=== PATIENT | male | born 2000 | race Caucasian/White ===

== ENCOUNTER 2023-07-30 10:45 | Emergency (ER) | payer OTHER, SELFPAY ==
[2023-07-30] VITALS (21 sets, daily range): BP systolic 107–130; BP diastolic 52–79; PULSE 75–115; RESP 13–20; TEMP 37.2; O2SAT 97–100
[2023-07-30 11:09] LABS: Basophils Percent Auto 0.3 % (0.2-1.2); Eosinophils Percent Auto 0.3 % (0-4.4); Hematocrit 39.7 % (42.0-52.0); Hemoglobin 13.2 g/dL (14.0-18.0); Immature Granulocyte Absolute 0.03 K/mm3 (0.00-0.031); Immature Granulocyte Percent A 0.3 % (0-0.5); Lymphocytes Absolute Auto 0.68 K/mm3 (0.9-3.2); Lymphocytes Percent Auto 6.8 % (18.3-44.2); Mean Corpuscular HGB Conc 33.2 g/dl (32-36); Mean Corpuscular Hemoglobin 28.7 pg (26-34); Mean Corpuscular Volume 86.3 fl (80-100); Mean Platelet Volume 10.1 fl (7.4-10.4); Monocytes Absolute Auto 0.5 K/mm3 (0.1-0.6); Monocytes Percent Auto 5.3 % (2.6-8.5); Neutrophils Absolute Auto 8.8 K/mm3 (1.3-6.7); Platelet Count Result 206 k/mm3 (150-375); Red Cell Distribution Width 13.2 % (11.5-14.5); White Blood Count 10.1 K/mm3 (4.5-10.0)
[2023-07-30 11:12] LABS: Appearance Urine Clear (Clear); Bilirubin Urine Negative (Negative); Blood Urine Negative (Negative); Color Urine Yellow (Yellow); Glucose Urine UA Negative (Negative); Ketones Urine Negative (Negative); Leukocyte Esterase Ur Negative LEU/UL (Negative); Nitrate Urine Negative (Negative); Protein Urine Negative (Negative); Specific Grav Ur 1.011 (1.001-1.035); pH Urine 8.5 (5.0-9.0)
[2023-07-30 11:19] LABS: Add Urine Microscopic? NO
[2023-07-30 11:21] LABS: Alanine Aminotransferase 17 U/L (6-50); Albumin Level 5.1 g/dL (3.5-5.1); Alkaline Phosphatase 107 U/L (38-126); Anion Gap 9 mmol/L (8-16); Aspartate Amino Transferase 22 U/L (17-59); Bilirubin,Total 1.6 mg/dL (0.2-1.3); Blood Urea Nitrogen 13 mg/dL (9-20); Calcium 9.7 mg/dL (8.4-10.2); Carbon Dioxide 31 mmol/L (22-30); Chloride 100 mmol/L (98-107); Estimated CRCL calculation 103 ml/min; Estimated Glomerular Filt Rate > 60; Glucose 97 mg/dL (65-110); Sodium 140 mmol/L (137-145)
--- NOTE | 2023-07-30 11:53 | ED.GENADULT ---
HPI - General Adult General Chief complaint: Urogenital-Male Stated complaint: Right Flank Pain Time Seen by Provider: 07/30/23 11:18 History of Present Illness HPI narrative: 22-year-old male presented ED for evaluation of left flank pain. 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 Patient was post follow-up this coming January with urology but states he does not have a urologist anymore. Patient reports left flank pain but denies any pain with urination. Related Data Allergies Allergy/AdvReac Type Severity Reaction Status Date / Time No Known Allergies Allergy Verified 07/30/23 11:06 Review of Systems Review of Systems: All systems reviewed & are unremarkable except as noted in HPI and below Exam Narrative: APPEARANCE: Well appearing, no pain, no distress, well-nourished. HEAD: normocephalic, atraumatic. EYES: PERRLA/EOMI, conjunctivae clear. NOSE: Normal no drainage NECK: Supple. No adenopathy, no masses. RESPIRATORY: Airway patent, respirations nonlabored. Clear to auscultation bilaterally, no rales, rhonchi, wheezing. CARDIOVASCULAR: Regular rate and rhythm without murmurs rubs or gallops. ABDOMINAL: Soft, nontender, nondistended, normal bowel sounds MUSCULOSKELETAL: Moves all extremities. Strength/ROM intact, No edema, No calf tenderness. NEURO: Alert. Cranial nerves II through XII intact. Grossly intact SKIN: Warm, dry. Normal Color Course Course Emergency Course: 22-year-old male presented the ED for evaluation of left flank pain. Patient had no hematuria on his UA. Patient was afebrile but does have a minor leukocytosis of 10.1 and a stable hemoglobin. Normal kidney function. Patient's bladder scan was negative. Patient was encouraged of close follow-up with his primary care physician. Vital Signs Vital signs: Vital Signs Temperature 98.9 F 07/30/23 10:47 Pulse Rate 115 H 07/30/23 10:47 Respiratory Rate 20 07/30/23 10:47 Blood Pressure 130/79 07/30/23 10:47 Pulse Oximetry 98 07/30/23 10:47 Oxygen Delivery Room Air 07/30/23 10:47 Temperature 98.9 F 07/30/23 10:47 Pulse Rate 90 07/30/23 13:46 Respiratory Rate 18 07/30/23 13:46 Blood Pressure 109/57 L 07/30/23 13:45 Pulse Oximetry 98 07/30/23 13:31 Oxygen Delivery Room Air 07/30/23 10:47 Medical Decision Making Differential Diagnosis Differential Diagnosis: UTI, urinary retention, acute kidney injury Vital Signs Vital Signs: Vital Signs Temperature 98.9 F 07/30/23 10:47 Pulse Rate 115 H 07/30/23 10:47 Respiratory Rate 20 07/30/23 10:47 Blood Pressure 130/79 07/30/23 10:47 Pulse Oximetry 98 07/30/23 10:47 Oxygen Delivery Room Air 07/30/23 10:47 Temperature 98.9 F 07/30/23 10:47 Pulse Rate 90 07/30/23 13:46 Respiratory Rate 18 07/30/23 13:46 Blood Pressure 109/57 L 07/30/23 13:45 Pulse Oximetry 98 07/30/23 13:31 Oxygen Delivery Room Air 07/30/23 10:47 Lab Data Lab results reviewed: Yes I reviewed the patient's lab results. 07/30/23 11:01 07/30/23 11:01 Labs: Lab Results 07/30/23 07/30/23 Range/Units 10:56 11:01 WBC 10.1 H (4.5-10.0) K/mm3 RBC 4.60 (4.6-6.20) M/mm3 Hgb 13.2 L (14.0-18.0) g/dL Hct 39.7 L (42.0-52.0) % MCV 86.3 (80-100) fl MCH 28.7 (26-34) pg MCHC 33.2 (32-36) g/dl RDW 13.2 (11.5-14.5) % Plt Count 206 (150-375) k/mm3 MPV 10.1 (7.4-10.4) fl Immature Gran % (Auto) 0.3 (0-0.5) % Neut % (Auto) 87.0 H (45.5-73.1) % Lymph % (Auto) 6.8 L (18.3-44.2) % Emmet % (Auto) 5.3 (2.6-8.5) % Eos % (Auto) 0.3 (0-4.4) % Baso % (Auto) 0.3 (0.2-1.2) % Lymph # (Auto) 0.68 L (0.9-3.2) K/mm3 Emmet # (Auto) 0.5 (0.1-0.6) K/mm3 Eos # (Auto) 0.0 (0-0.3) K/mm3 Baso # (Auto) 0.0 (0.0-0.1) K/mm3 Abs Immat Gran (auto) 0.03 (0.00-0.031) K/mm3 Absolute Neuts (auto) 8.8 H (1.3-6.7) K/mm3 Absolute
[2023-07-30] MEDS: ACETAMINOPHEN 500 MG TABLET 1000 MG PO (12:18)
[2023-07-30] MEDS: SODIUM CHLORIDE 0.9% IV 1,000 ML 999 ML IV CONT (12:18)
== END 2023-07-30 14:03 | disposition home or self-care (01) ==
PROVIDERS: Emergency Provider Emergency Medicine; PCP Family Medicine
DX: M54.9 Dorsalgia, unspecified (principal); N32.89 Other specified disorders of bladder
CPT/HCPCS: 36415; 80053; 81003; 85025; 96360; 99283; A9270; J7030

== ENCOUNTER 2023-08-10 12:10 | Emergency (ER) | payer OTHER, SELFPAY ==
--- NOTE | ~2023-08-10 | CT_ITS ---
EXAMINATION: CT abdomen pelvis wo con DATE: 08/10/2023 13:04 INDICATION: Flank pain, right back pain TECHNIQUE: Computed tomography (CT) of the abdomen and pelvis was performed without intravenous contr ast. Automated exposure control and iterative reconstruction technique were employed. Exam dose: 214 .22 mGy-cm total exam DLP. COMPARISON: None. FINDINGS: The lung bases are clear. Normal heart size. No pericardial or pleural effusion. The liver, gallbladder, bile ducts, pancreas, pancreatic duct and spleen appear normal. Normal morphology of the adrenal glands. No renal mass lesion or urinary tract calculus or hydroureteronephrosis. Normal caliber of the abdominal aorta. No intraperitoneal or retroperitoneal or pelvic mass lesion or adenopathy or ascites. The urinary bladder, prostate gland and seminal vesicles are unremarkable. The appendix is not clearly delineated but no inflammatory changes noted in the right lower quadrant or elsewhere. No bowel obstruction or intraperitoneal free air. 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 No suspicious osteolyti c or osteoblastic lesions. IMPRESSION: No significant abnormality of the abdomen or pelvis Transitional lumbosacral vertebra Reviewed, dictated and finalized at [facility]. Reviewed, dictated and finalized at [facility].
--- NOTE | 2023-08-10 12:47 | ED.BACK ---
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 He states symptoms have been present for the last couple of weeks, initially was just experiencing back pain. He was seen here in the emergency department and did not have any dysuria at that time. He had a negative workup and was discharged with outpatient follow-up. He states he has not followed up with his primary care doctor or urologist since his recent visit. He notes that he recently began having burning and pain with urination in addition to the lower back pain. He denies any fever chills. No issues initiating or maintaining urinary stream. No incontinence. He notes some increase in abdominal pain occasionally with eating. Pain is located in bilateral flank and intermittently radiates anteriorly. No hematuria. No diarrhea. Would like to be tested for STDs. Related Data Allergies Allergy/AdvReac Type Severity Reaction Status Date / Time No Known Allergies Allergy Verified 08/10/23 12:15 Review of Systems Review of Systems: All systems reviewed & are unremarkable except as noted in HPI and below Exam Narrative: GENERAL: Well-appearing, well-nourished, and in no acute distress. HEAD: Normocephalic, atraumatic. EYES: PERRLA and EOMI. ENT: Nares clear. Mucous membranes moist. NECK: Supple. CHEST: Clear to auscultation. No respiratory distress. HEART: Regular rate and rhythm. Normal peripheral pulses. ABDOMEN: Soft, nontender, nondistended. Bilateral mild CVA tenderness. EXTREMITIES: Normal range of motion. No edema. No midline back pain. SKIN: Warm, dry, no rash. NEURO: No focal deficits. Alert and oriented x3. PSYCH: Normal mood and affect. Course Course Emergency Course: Chart review performed. Patient here with back pain, reportedly pain with urination. ED note on 07/30/23 reviewed. He was seen here for flank pain. During that visit WBC 10.1, normal renal function, UA negative. Was discharged with PCP follow up. Patient seen evaluated, nontoxic appearing. Bilateral CVA tenderness and dysuria. Will evaluate for possible STI, UTI, nephrolithiasis. Patient has a ride home. Will give IV pain medication and antiemetics. IV fluids initiated. Last p.o. intake was around 12PM. Lab work reviewed, no leukocytosis, WBC 10.1 on 07/30/23, improved today to 8.2. UA shows 3+ leukocyte esterases, >100 WBC, no bacteria, no RBC. CT shows no stones or hydronephrosis. Trichomonas negative. Awaiting GC/Chlamydia. Patient positive for gonorrhea. Will treat patient for UTI and gonorrhea. He has been given Rocephin and doxycycline here in the emergency department and will be discharged on Keflex and doxycycline. All partners should be tested and treated. His current partner at bedside plans to be tested and treated for STIs as well. The results of pertinent diagnostic studies and exam findings were discussed. The patient?s provisional diagnosis and plan of care were discussed with the patient and present family. The patient and/or present family expressed understanding of the diagnosis and plan. The nurse was instructed to provide written instructions and appropriate follow-up information. The patient understands their need and responsibility to obtain additional follow-up as instructed. The risks of medications administered and prescribed were discussed with the patient and family present. Vital Signs Vital signs: Vital Signs Pulse Rate 84 08/10/23 17:38 Respiratory Rate 16 08/10/23 17:38 Blood Pressure 128/86 08/10/23 17:38 Pulse Oximetry 99 08/10/23 17:38 Pulse Rate 84 08/10/23 17:38 Respiratory Rate 16 08/10/23 17:38 Blood Pressure 128/86 08/10/23 17:38 Pulse
[2023-08-10 13:23] LABS: Basophils Absolute Auto 0.1 K/mm3 (0.0-0.1); Basophils Percent Auto 0.7 % (0.2-1.2); Eosinophils Absolute Auto 0.2 K/mm3 (0-0.3); Eosinophils Percent Auto 2.6 % (0-4.4); Hematocrit 38.4 % (42.0-52.0); Hemoglobin 12.2 g/dL (14.0-18.0); Immature Granulocyte Absolute 0.05 K/mm3 (0.00-0.031); Immature Granulocyte Percent A 0.6 % (0-0.5); Lymphocytes Absolute Auto 1.84 K/mm3 (0.9-3.2); Lymphocytes Percent Auto 22.4 % (18.3-44.2); Mean Corpuscular HGB Conc 31.8 g/dl (32-36); Mean Corpuscular Hemoglobin 27.9 pg (26-34); Mean Corpuscular Volume 87.7 fl (80-100); Mean Platelet Volume 9.3 fl (7.4-10.4); Monocytes Absolute Auto 0.5 K/mm3 (0.1-0.6); Monocytes Percent Auto 6.5 % (2.6-8.5); Neutrophils Absolute Auto 5.5 K/mm3 (1.3-6.7); Neutrophils Percent Auto 67.2 % (45.5-73.1); Platelet Count Result 286 k/mm3 (150-375); Red Blood Count 4.38 M/mm3 (4.6-6.20); Red Cell Distribution Width 13.2 % (11.5-14.5); White Blood Count 8.2 K/mm3 (4.5-10.0)
[2023-08-10] MEDS: SODIUM CHLORIDE 0.9% IV 1,000 ML 999 ML IV CONT (13:26)
[2023-08-10] MEDS: ONDANSETRON INJ 4 MG/2 ML VIAL IV PUSH (13:27)
[2023-08-10] MEDS: MORPHINE SULFATE (*CRX) 4 MG/ML INJ IV PUSH (13:27)
[2023-08-10 13:28] LABS: Appearance Urine Cloudy (Clear); Bacteria Urine None Seen /hpf; Bilirubin Urine Negative (Negative); Color Urine Yellow (Yellow); Glucose Urine UA Negative (Negative); Ketones Urine Negative (Negative); Leukocyte Esterase Ur 3+ LEU/UL (Negative); Nitrate Urine Negative (Negative); Non Pathogenic Casts 0-2; Protein Urine Negative (Negative); RBC Urine 0-2 /hpf (0-2); Specific Grav Ur 1.025 (1.001-1.035); Squamous Epithelial Cell Urine None seen /hpf (Few); Urobilinogen Urine 0.2 mg/dL (<2.0); WBC Urine >100 /hpf; pH Urine 5.5 (5.0-9.0)
[2023-08-10 13:30] LABS: Add Urine Microscopic? YES
[2023-08-10 13:33] LABS: Alanine Aminotransferase 17 U/L (6-50); Albumin Level 4.4 g/dL (3.5-5.1); Alkaline Phosphatase 85 U/L (38-126); Anion Gap 9 mmol/L (8-16); Aspartate Amino Transferase 21 U/L (17-59); Bilirubin,Total 0.7 mg/dL (0.2-1.3); Blood Urea Nitrogen 13 mg/dL (9-20); Calcium 9.2 mg/dL (8.4-10.2); Carbon Dioxide 27 mmol/L (22-30); Chloride 104 mmol/L (98-107); Estimated CRCL calculation 117 ml/min; Estimated Glomerular Filt Rate > 60; Glucose 92 mg/dL (65-110); Lipase 80 U/L (23-300); Potassium 3.9 mmol/L (3.4-5.0); Sodium 140 mmol/L (137-145)
[2023-08-10 15:08] LABS: Trichomonas Vag PCR NOT DETECTED (NOT DETECTE)
[2023-08-10 15:34] LABS: Chlamydia trachomatis NOT DETECTED (NOT DETECTE); Neisseria gonorrhoeae PCR DETECTED (NOT DETECTE)
[2023-08-10] MEDS: LIDOCAINE HCL 1% LOCAL INJ 10 ML VIAL (17:08)
[2023-08-10] MEDS: cefTRIAXone 1 GM VIAL 0.5 GM IM (17:08)
[2023-08-10] MEDS: DOXYCYCLINE HYCLATE 100 MG TABLET PO (17:09)
[2023-08-10 17:38] VITALS: BP 128/86; PULSE 84; RESP 16; O2SAT 99
== END 2023-08-10 17:39 | disposition home or self-care (01) ==
PROVIDERS: Emergency Provider Student in an Organized Health Care Education/Training Program; PCP Family Medicine
DX: N39.0 Urinary tract infection, site not specified (principal); A54.00 Gonococcal infection of lower genitourinary tract, unspecified; M54.50 Low back pain, unspecified; Q76.49 Other congenital malformations of spine, not associated with scoliosis
CPT/HCPCS: 36415; 74176; 80053; 81001; 83690; 85025; 87086; 87491; 87591; 87661; 96361; 96372; 96374; 96375; 99284; A9270; J0696; J2270; J2405; J7030

== ENCOUNTER 2023-09-04 02:47 | Emergency (ER) | payer OTHER, SELFPAY ==
[2023-09-04 02:58] VITALS: BP 123/86; PULSE 73; RESP 14; TEMP 36.2; O2SAT 100
--- NOTE | 2023-09-04 03:54 | ED.GENADULT ---
HPI - General Adult General Chief complaint: Back Pain/Injury Stated complaint: low back pain Time Seen by Provider: 09/04/23 03:25 Source: patient Mode of arrival: ambulatory Limitations: no limitations History of Present Illness HPI narrative: 23-year-old male presenting to emergency department for complaints of concerns for UTI. Patient was seen here recently for similar symptoms and was diagnosed with gonorrhea and UTI. He was treated for gonorrhea here but never was able to get his prescriptions for the UTI. The symptoms have continued and include dysuria, frequency, some low back pain. He previously had a bladder tumor that was removed. No hematuria. All other symptoms and complaints are negative as per ROS. Related Data Allergies Allergy/AdvReac Type Severity Reaction Status Date / Time No Known Allergies Allergy Verified 08/10/23 12:15 Review of Systems Review of Systems: All systems reviewed & are unremarkable except as noted in HPI and below Exam Narrative: Constitutional: Generally well appearing, no acute distress Head: Atraumatic, no deformities. Eyes: Pupils equal, round, and reactive to light. Neck: Supple, no tracheal deviation, no JVD. ENMT: Mucous membranes moist Cardiovascular: S1, S2 auscultated. No murmurs, rubs, or gallops. No S3/S4. Normal Distal pulses. No peripheral edema. Respiratory: Lung sounds equal. No wheezes, rales, or rhonchi. Gastrointestinal: Abdomen was soft and non-tender. Non-distended. No rebound or guarding. Genitourinary: Deferred Musculoskeletal: Normal muscle tone and bulk. No obvious deformities or tenderness over extremities. Skin: No rashes. Neurological: Strength 5/5 in extremities. Cranial nerves I-XII grossly intact. Distal sensation intact. Mental Status: Awake, alert and oriented x3. Follows commands Course Vital Signs Vital signs: Vital Signs Temperature 36.2 C L 09/04/23 02:58 Pulse Rate 73 09/04/23 02:58 Respiratory Rate 14 09/04/23 02:58 Blood Pressure 123/86 09/04/23 02:58 Pulse Oximetry 100 09/04/23 02:58 Oxygen Delivery Room Air 09/04/23 02:58 Temperature 36.2 C L 09/04/23 02:58 Pulse Rate 73 09/04/23 02:58 Respiratory Rate 14 09/04/23 02:58 Blood Pressure 123/86 09/04/23 02:58 Pulse Oximetry 100 09/04/23 02:58 Oxygen Delivery Room Air 09/04/23 02:58 Medical Decision Making MDM Narrative Medical decision making narrative: 23-year-old well-appearing male presenting for concerns for UTI. Previous history of bladder tumor removal. Was treated for gonorrhea recently and was given prescription for antibiotics for UTI but was never able to get them. Symptoms are continued. On exam he is well-appearing. Abdomen is benign. Will obtain urinalysis. Differential including UTI , unlikely STD given he was recently treated for it. Urinalysis reviewed and interpreted showing ketones but no obvious infection. Given he was supposed to be treated for infection recently and is still symptomatic, will initiate treatment and Given new prescription for doxycycline and Keflex. Patient is agreeable . Pt feeling improved and would like to go home at this point. Return precautions were given to the patient include any new or worsening symptoms or development of and not limited to any chest pain, shortness of breath, lightheadedness, abdominal pain, fevers, chills. Patient understands and agrees. They are to follow-up with her PCP. All questions were answered. Vital Signs Vital Signs: Vital Signs Temperature 36.2 C L 09/04/23 02:58 Pulse Rate 73 09/04/23 02:58 Respiratory Rate 14 09/04/23 02:58 Blood Pressure 123/86 09/04/23 02:58 Pulse Oximetry 100 09/04/23 02:58 Oxygen Delivery Room Air 09/04/23 02:58 Temperature 36.2 C L 09/04/23 02:58 Pulse Rate 73 09/04/23 02:58 Respiratory Rate 14 09/04/23 02:58 Blood Pressure 123/86 09/04/23 02:58 Pulse Oximetry 100 09/04/23 02:58
[2023-09-04 04:12] LABS: Appearance Urine Cloudy (Clear); Bacteria Urine None Seen /hpf; Bilirubin Urine Negative (Negative); Blood Urine Negative (Negative); Color Urine Dark Yellow (Yellow); Glucose Urine UA Negative (Negative); Ketones Urine Trace mg/dL (Negative); Leukocyte Esterase Ur Negative LEU/UL (Negative); Nitrate Urine Negative (Negative); Non Pathogenic Casts 0-2; Protein Urine Negative (Negative); RBC Urine 0-2 /hpf (0-2); Squamous Epithelial Cell Urine None seen /hpf (Few); WBC Urine 0-5 /hpf
[2023-09-04 04:58] LABS: Add Urine Microscopic? YES; Specific Grav Ur 1.036 (1.001-1.035)
[2023-09-04 05:22] VITALS: BP 122/86; PULSE 74; RESP 15; O2SAT 100
== END 2023-09-04 05:23 | disposition home or self-care (01) ==
PROVIDERS: Emergency Provider Emergency Medicine; PCP Family Medicine
DX: N39.0 Urinary tract infection, site not specified (principal)
CPT/HCPCS: 81001; 99283

== ENCOUNTER 2023-09-10 14:05 | Emergency (ER) | payer OTHER, SELFPAY ==
[2023-09-10 14:16] VITALS: BP 113/73; PULSE 83; RESP 16; TEMP 36.8; O2SAT 100
--- NOTE | 2023-09-10 14:43 | ED.BACK ---
HPI - Back Pain/Injury General Chief Complaint: Back Pain/Injury Stated Complaint: back pain,was seen @ [facility] x2 Time Seen by Provider: 09/10/23 14:20 Source: patient Mode of arrival: ambulatory Limitations: no limitations History of Present Illness HPI Narrative: Juan Pablo is a 17-year-old male patient presenting to the clinic today with complaints of left-sided back pain and left testicle pain. He reports that he has had left-sided back pain for the last month. Was recently treated for UTI and states he is still having pain. Currently taking doxycycline and Keflex for the UTI. Pain is worse with movement. No known injury. Was treated for STI/UTI in the ER on September 04. States testicle pain started over the last few days. History of a benign tumor in the bladder. Related Data Home Medications Medication Instructions Recorded Confirmed cephalexin 500 mg capsule mg 09/10/23 doxycycline hyclate 100 mg tablet mg 09/10/23 Allergies Allergy/AdvReac Type Severity Reaction Status Date / Time No Known Allergies Allergy Verified 09/10/23 14:14 Review of Systems Review of Systems: Pertinent positives per HPI. Patient denies any fever, chills, rash, headache, visual changes, dizziness, cough, runny nose, sore throat, shortness of breath, chest pain, palpitations, nausea, vomiting, diarrhea, constipation, abdominal pain PMFSH Comments At the time of my signature, I reviewed and agree with the nursing past medical, surgical, social, and family history. There is no relevant family history pertinent to the patient complaint. Exam Narrative: General: Well-developed, well nourished, in no apparent distress Head: Normocephalic, atraumatic. Cardio: Regular rate and rhythm, s1 and s2 normal, no murmur appreciated. Resp: Clear to auscultation bilaterally, no rhonchi, rales, wheezing or rubs. Musculoskeletal: No deformity, tender to palpation over the left low back musculature, negative straight leg test bilaterally, patellar reflexes 2+ bilaterally, grossly normal range of motion, muscle strength strong and equal, peripheral pulse strong, no edema, no cyanosis, normal gait and station Abdomen: Soft, pliable, bowel sounds present in all quadrants, non-tender to palpation, no organomegly, no CVAT tenderness. : Circumcised male without corneal adhesions, no mass or lesions noted to the vas deferens, penile shaft, or scrotum, no penile discharge, tenderness to palpation over the top of the left testicle, decreased cremasteric reflex Course Course Emergency Course: Portions of this record may have been created with voice recognition software. Level of Care: Express Care Visit Vital Signs Vital signs: Vital Signs Temperature 36.8 C 09/10/23 14:16 Pulse Rate 83 09/10/23 14:16 Respiratory Rate 16 09/10/23 14:16 Blood Pressure 113/73 09/10/23 14:16 Pulse Oximetry 100 09/10/23 14:16 Oxygen Delivery Room Air 09/10/23 14:16 Temperature 36.8 C 09/10/23 14:16 Pulse Rate 83 09/10/23 14:16 Respiratory Rate 16 09/10/23 14:16 Blood Pressure 113/73 09/10/23 14:16 Pulse Oximetry 100 09/10/23 14:16 Oxygen Delivery Room Air 09/10/23 14:16 Vital signs reviewed MDM - Back Pain/Injury MDM Narrative Medical decision making narrative: At the time of visit patient is resting comfortably on the exam table. Patient reports left testicle pain and left sided back pain. Recommend transfer the to the ER for further evaluation. Contacted Dr. Savage at [facility] and report was given for continuity of care and she accepts patient for transfer. Patient to be transferred via private car. Differential Diagnosis Differential diagnosis: Likely lumbar radiculopathy, sciatica, strain of lumbar region, renal colic, pyelonephritis, thoracic back pain, discitis and other (STI, UTI) Lab Data Labs: Urine Glucose Negative *
== END 2023-09-10 14:58 | disposition short-term general hospital (02) ==
LOC: EXPCOLL 14:09
PROVIDERS: Emergency Provider Nurse Practitioner Family; PCP Family Medicine
DX: M54.9 Dorsalgia, unspecified (principal); Z79.899 Other long term (current) drug therapy
CPT/HCPCS: 81003; 99212; G0463

== ENCOUNTER 2023-09-10 15:14 | Emergency (ER) | payer OTHER, SELFPAY ==
[2023-09-10 15:17] VITALS: BP 131/77; PULSE 69; RESP 16; TEMP 36.6; O2SAT 100
[2023-09-10 15:33] LABS: Basophils Percent Auto 0.6 % (0.2-1.2); Eosinophils Absolute Auto 0.1 K/mm3 (0-0.3); Eosinophils Percent Auto 2.1 % (0-4.4); Hematocrit 41.2 % (42.0-52.0); Hemoglobin 13.4 g/dL (14.0-18.0); Immature Granulocyte Absolute 0.02 K/mm3 (0.00-0.031); Immature Granulocyte Percent A 0.3 % (0-0.5); Lymphocytes Absolute Auto 1.83 K/mm3 (0.9-3.2); Lymphocytes Percent Auto 27.4 % (18.3-44.2); Mean Corpuscular HGB Conc 32.5 g/dl (32-36); Mean Corpuscular Volume 86.2 fl (80-100); Mean Platelet Volume 9.8 fl (7.4-10.4); Monocytes Absolute Auto 0.3 K/mm3 (0.1-0.6); Monocytes Percent Auto 5.1 % (2.6-8.5); Neutrophils Absolute Auto 4.3 K/mm3 (1.3-6.7); Neutrophils Percent Auto 64.5 % (45.5-73.1); Platelet Count Result 237 k/mm3 (150-375); Red Blood Count 4.78 M/mm3 (4.6-6.20); Red Cell Distribution Width 13.2 % (11.5-14.5); White Blood Count 6.7 K/mm3 (4.5-10.0)
[2023-09-10 15:34] LABS: Appearance Urine Clear (Clear); Bilirubin Urine Negative (Negative); Blood Urine Negative (Negative); Color Urine Yellow (Yellow); Glucose Urine UA Negative (Negative); Ketones Urine Negative (Negative); Leukocyte Esterase Ur Negative LEU/UL (Negative); Nitrate Urine Negative (Negative); Protein Urine Negative (Negative); Specific Grav Ur 1.023 (1.001-1.035); Urobilinogen Urine 0.2 mg/dL (<2.0)
[2023-09-10 15:40] LABS: Add Urine Microscopic? NO
[2023-09-10 15:45] LABS: Alanine Aminotransferase 18 U/L (6-50); Albumin Level 5.2 g/dL (3.5-5.1); Alkaline Phosphatase 91 U/L (38-126); Anion Gap 8 mmol/L (8-16); Aspartate Amino Transferase 21 U/L (17-59); Bilirubin,Total 1.4 mg/dL (0.2-1.3); Blood Urea Nitrogen 15 mg/dL (9-20); Calcium 9.9 mg/dL (8.4-10.2); Carbon Dioxide 30 mmol/L (22-30); Chloride 101 mmol/L (98-107); Estimated CRCL calculation 109 ml/min; Estimated Glomerular Filt Rate > 60; Glucose 100 mg/dL (65-110); Sodium 139 mmol/L (137-145)
--- NOTE | 2023-09-10 16:04 | ED.GENADULT ---
HPI - General Adult General Chief complaint: Back Pain/Injury Stated complaint: back pain Time Seen by Provider: 09/10/23 15:41 History of Present Illness HPI narrative: Patient is a 23-year-old male who presents to the emergency department this afternoon complaining of left lower back pain. Patient admits that he was recently treated for a UTI/STD and admits that he has been taking his antibiotic and is currently still on it. He denies any additional urinary symptoms including dysuria, hematuria and is currently denying any penile discharge or genital lesions. Patient states that he has been having this chronic back pain for a while. He denies any recent injury or any back injury in the past. Patient denies any history of IV drug use. Patient denies any chest pain, shortness of breath, nausea, vomiting, abdominal pain, constipation, diarrhea, melena, hematochezia, fevers or chills. He also denies any headaches, dizziness, lightheadedness, blurry visions, focal weakness, numbness and or tingling. There are no other modifying, alleviating, or precipitating factors at this time. Related Data Home Medications Medication Instructions Recorded Confirmed cephalexin 500 mg capsule mg 09/10/23 doxycycline hyclate 100 mg tablet mg 09/10/23 Allergies Allergy/AdvReac Type Severity Reaction Status Date / Time No Known Allergies Allergy Verified 09/10/23 14:14 Review of Systems Review of Systems: All systems are reviewed and are negative unless stated otherwise in the HPI. Exam Narrative: General: Alert, awake, afebrile, in no acute distress, nontoxic-appearing. HEENT: PERRL, no rhinorrhea, no post nasal drip, oropharynx clear. Neck: Trachea midline, no JVD, no lymphadenopathy. Cardiovascular: Regular rate and rhythm, no murmurs, rubs or gallops, no peripheral edema. Respiratory: Clear to auscultation bilaterally, no tachypnea, no wheezing, no rhonchi, no rubs, no respiratory distress. Abdomen: Soft, nontender, nondistended, no rebound, no guarding, no peritoneal signs. Musculoskeletal: No joint swelling or deformity, normal muscle tone. Back: No midline tenderness to palpation over the cervical, thoracic, and lumbar spine, localized tenderness over the left SI joint. Skin: No rashes or petechia, no signs of infection. Psychiatric: Alert and oriented, normal behavior and judgment for situation. Neurological: Alert and oriented to person, place, and time. Follows all commands. No focal deficits, speech is clear and fluent. Course Vital Signs Vital signs: Vital Signs Temperature 97.9 F 09/10/23 15:17 Pulse Rate 69 09/10/23 15:17 Respiratory Rate 16 09/10/23 15:17 Blood Pressure 131/77 09/10/23 15:17 Pulse Oximetry 100 09/10/23 15:17 Oxygen Delivery Room Air 09/10/23 15:17 Temperature 97.9 F 09/10/23 15:17 Pulse Rate 69 09/10/23 15:17 Respiratory Rate 16 09/10/23 15:17 Blood Pressure 131/77 09/10/23 15:17 Pulse Oximetry 100 09/10/23 15:17 Oxygen Delivery Room Air 09/10/23 15:17 Medical Decision Making MDM Narrative Medical decision making narrative: The patient was evaluated by myself in the emergency department. History is obtained from patient who is an independent historian and physical exam was performed. External medical records were reviewed at this time. IV was established and pertinent tests were ordered. Laboratory results obtained revealing no acute process. Patient was recently treated for UTI and is currently still taking his antibiotic. Urinalysis obtained today reveals no evidence of urinary tract infection and patient was informed of this and informed to continue taking his full dose of the antibiotic. Imaging studies obtained on August [address] abdomen and pelvis with IV contrast which revealed some lumbosacral pseudoarthrosis and patient was informed of this and provided with a copy of his CT results. He was informed that this could be the
[2023-09-10] MEDS: LIDOCAINE 5% PATCH 1 PATCH TRANSDERM (16:39)
== END 2023-09-10 16:45 | disposition home or self-care (01) ==
PROVIDERS: Emergency Medicine; Emergency Provider Emergency Medicine; PCP Family Medicine
DX: M54.16 Radiculopathy, lumbar region (principal); S39.012A Strain of muscle, fascia and tendon of lower back, initial encounter; X58.XXXA Exposure to other specified factors, initial encounter
CPT/HCPCS: 36415; 80053; 81003; 85025; 99283; A9270

== ENCOUNTER 2024-03-07 11:55 | Emergency (ER) | payer OTHER, SELFPAY ==
[2024-03-07 12:10] VITALS: BP 117/78; PULSE 81; RESP 17; TEMP 36.8; O2SAT 99
[2024-03-07 12:28] LABS: Appearance Urine Clear (Clear); Bacteria Urine None Seen /hpf; Bilirubin Urine Negative (Negative); Blood Urine Trace (Negative); Color Urine Yellow (Yellow); Glucose Urine UA Negative (Negative); Ketones Urine Negative (Negative); Leukocyte Esterase Ur Negative LEU/UL (Negative); Nitrate Urine Negative (Negative); Non Pathogenic Casts 0-2; Protein Urine Negative (Negative); RBC Urine 0-2 /hpf (0-2); Specific Grav Ur 1.013 (1.001-1.035); Squamous Epithelial Cell Urine None Seen /hpf (Few); Urobilinogen Urine 0.2 mg/dL (<2.0); WBC Urine 0-5 /hpf (0-3)
[2024-03-07 12:32] LABS: Add Urine Microscopic? YES
--- NOTE | 2024-03-07 13:22 | ED.MALEGU ---
HPI - Male Genitourinary General Chief complaint: Urogenital-Male Stated complaint: urinary problems Time Seen by Provider: 03/07/24 12:07 Source: patient Mode of arrival: ambulatory Limitations: no limitations History of Present Illness HPI Narrative: 23-year-old status post bladder tumor resection early part of this year here with complaints of having burning sensation and decreased urine flow at times for past few days. Patient has been in the ER for similar problems in the past for UTI. He presently denies having any fever or chills no history of any flank pain or blood in the urine. Denies any penile discharge Related Data Home Medications Medication Instructions Recorded Confirmed cephalexin 500 mg capsule mg 09/10/23 doxycycline hyclate 100 mg tablet mg 09/10/23 Allergies Allergy/AdvReac Type Severity Reaction Status Date / Time No Known Allergies Allergy Verified 09/10/23 14:14 Review of Systems Review of Systems: All systems reviewed & are unremarkable except as noted in HPI and below Constitutional: Constitutional: Reports no additional constitutional complaints Eyes: Eyes: Reports no additional eye complaints ENT: Reports system reviewed and no additional complaints, except as documented Cardiovascular: Cardiovascular: Reports no additional cardiovascular complaints Respiratory: Respiratory: Reports no additional respiratory complaints Gastrointestinal: Gastrointestinal: Reports as per HPI Genitourinary: Genitourinary: Reports as per HPI Musculoskeletal: Musculoskeletal: Reports no additional musculoskeletal complaints Exam Narrative: GENERAL: Well-appearing, well-nourished, and in no acute distress. HEAD: Normocephalic, atraumatic. EYES: PERRLA and EOMI. ENT: Nares clear, no rhinorrhea or epistaxis. Mucous membranes moist. NECK: Supple. CHEST: Clear to auscultation. No respiratory distress. HEART: Regular rate and rhythm. No murmur heard. Normal peripheral pulses. ABDOMEN: Soft, nontender, nondistended, normal active bowel sounds. No CVA tenderness EXTREMITIES: Normal range of motion. No edema. SKIN: Warm, dry, no rash. NEURO: No focal deficits. Alert and oriented x3. PSYCH: Normal mood and affect. Course Course Emergency Course: I did review his chart from the previous visit. He his urine is clear I did inform him about his lab work. Advised him to drink more fluids, I feel has any high fever or having recurrent problem follow-up with his primary doctor. Vital Signs Vital signs: Vital Signs Temperature 36.8 C 03/07/24 12:10 Pulse Rate 81 03/07/24 12:10 Respiratory Rate 17 03/07/24 12:10 Blood Pressure 117/78 03/07/24 12:10 Pulse Oximetry 99 03/07/24 12:10 Oxygen Delivery Room Air 03/07/24 12:10 Temperature 36.8 C 03/07/24 12:10 Pulse Rate 81 03/07/24 12:10 Respiratory Rate 17 03/07/24 12:10 Blood Pressure 117/78 03/07/24 12:10 Pulse Oximetry 99 03/07/24 12:10 Oxygen Delivery Room Air 03/07/24 12:10 MDM - Male Genitourinary Lab Data Labs: Lab Results 03/07/24 Range/Units 12:17 Urine Color Yellow (Yellow) Urine Appearance Clear (Clear) Urine pH 6.0 (5.0-9.0) Ur Specific Barnard 1.013 (1.001-1.035) Urine Protein Negative (Negative) mg/dL Urine Glucose (UA) Negative (Negative) mg/dL Urine Ketones Negative (Negative) mg/dL Ur Blood (Man) Trace (Negative) Urine Nitrate Negative (Negative) Urine Bilirubin Negative (Negative) Urine Urobilinogen 0.2 (<2.0) mg/dL Leukocyte Esterase Rfl Negative (Negative) GRETA/UL Urine RBC 0-2 (0-2) /hpf Urine WBC 0-5 (0-3) /hpf Ur Squamous Epith Cells None seen (Few) /hpf Urine Bacteria None seen /hpf Urine Casts 0-2 Urine Characteristics Clear Discharge Plan Discharge Clinical Impression: Dysuria Patient Disposition: Home, Self-Care Condit
[2024-03-07 13:37] VITALS: BP 118/73; PULSE 72; RESP 17; TEMP 36.7; O2SAT 100
== END 2024-03-07 13:38 | disposition home or self-care (01) ==
PROVIDERS: Emergency Provider Family Medicine; PCP Family Medicine
DX: R30.0 Dysuria (principal)
CPT/HCPCS: 81001; 99283

== ENCOUNTER 2024-07-19 18:34 | Emergency (ER) | payer OTHER, SELFPAY ==
--- NOTE | 2024-07-19 18:36 | ED.SKABFB ---
HPI - Skin/Abscess/Foreign Bdy General Chief complaint: Skin/Abscess/Foreign Body Stated complaint: rash on body Time Seen by Provider: 07/19/24 18:35 Source: patient Mode of arrival: ambulatory Limitations: no limitations History of Present Illness HPI narrative: Juan Pablo is a 23-year-old male patient presenting to the clinic today with complaints of a rash times 2-3 days. He reports rash is itchy and is on his left arm and on the right chest wall. Denies any fever, chills, or body aches. Denies any new environmental exposures. Related Data Home Medications Medication Instructions Recorded Confirmed cephalexin 500 mg capsule mg 09/10/23 doxycycline hyclate 100 mg tablet mg 09/10/23 Allergies Allergy/AdvReac Type Severity Reaction Status Date / Time No Known Allergies Allergy Verified 09/10/23 14:14 Review of Systems Review of Systems: Pertinent positives per HPI. Patient denies any fever, chills, headache, visual changes, dizziness, cough, runny nose, sore throat, shortness of breath, chest pain, palpitations, nausea, vomiting, diarrhea, constipation, abdominal pain, or any urinary issues. PMFSH Comments At the time of my signature, I reviewed and agree with the nursing past medical, surgical, social, and family history. There is no relevant family history pertinent to the patient complaint. Exam Narrative: General: Well-developed, well nourished, in no apparent distress Head: Normocephalic, atraumatic. Cardio: Regular rate and rhythm, s1 and s2 normal, no murmur appreciated. Resp: Clear to auscultation bilaterally, no rhonchi, rales, wheezing or rubs. Integumentary: [place], warm, and dry, intact without lesion, red, raised, scaly, circular rash with central clearing to the left arm x2 and the right chest wall Course Course Emergency Course: Portions of this record may have been created with voice recognition software. Level of Care: Express Care Visit Vital Signs Vital signs: Vital signs reviewed MDM - Skin/Abscess/Foreign Bdy MDM Narrative Medical decision making narrative: At the time of visit patient is resting comfortably on the exam table. Patient appears to be nontoxic. Plan: I suspect patient has tinea corpus. Prescription for clotrimazole cream was sent to the pharmacy. Supportive measures were discussed with the patient and they voiced understanding discharge instructions and agrees to treatment plan. Return precautions reviewed Differential Diagnosis Differential diagnosis: Likely abscess of skin or subcutaneous tissue, viral exanthem, urticaria, herpes zoster, cellulitis, eczema, insect bites, impetigo, contact dermatitis and other (Tinea corpus) Discharge Plan Discharge Clinical Impression: Tinea corporis Patient Disposition: Home, Self-Care Condition: Stable Instructions: Antibiotic Form, Tinea Corporis (ED) Additional Instructions: Apply clotrimazole cream to the area twice daily times 14 days Rash is considered contagious for the 1st 48 hours while doing treatment Keep area covered during this 48 hour. Follow-up with your primary care doctor in 1 week if symptoms persist or sooner if they worsen Prescriptions: New clotrimazole 1 % cream 1 applic topical BID 14 Days Qty: 30 0RF No Action cephalexin 500 mg capsule doxycycline hyclate 100 mg tablet lidocaine [Lidoderm] 5 % adhesive patch,medicated 1 patch topical DAILY Qty: 2 0RF Rx Instructions: leave on most painful area for up to 12 hrs Follow-up/Referrals: Anna,Alexis Malone MD [Primary Care Provider] - Time of Disposition: 19:05 Quality NIHSS Nursing Documentation ED NIHSS nursing documentation: reviewed/agree
[2024-07-19 19:12] VITALS: BP 128/79; PULSE 68; RESP 20; TEMP 36.7; O2SAT 100
== END 2024-07-19 19:22 | disposition home or self-care (01) ==
LOC: EXPCOLL 18:41
PROVIDERS: Emergency Provider Nurse Practitioner Family; PCP Family Medicine
DX: B35.4 Tinea corporis (principal)
CPT/HCPCS: 99213; G0463

== ENCOUNTER 2025-07-27 11:44 | Emergency (ER) | payer OTHER, SELFPAY ==
--- NOTE | ~2025-07-27 | XR_ITS ---
X-rays left wrist Indication: Lifting boxes and felt pop Comparison: None Technique: 4 views left wrist Findings/Impression: 1. No fracture or dislocation left wrist. Reviewed, dictated and finalized at location R.
[2025-07-27 11:57] VITALS: BP 106/64; PULSE 62; RESP 18; TEMP 36.7; O2SAT 100
--- NOTE | 2025-07-27 12:11 | ED.GENADULT ---
HPI - General Adult General Chief complaint: Extremity Injury, Upper Stated complaint: Severe pain in left wrist; thinks it's sprained Time Seen by Provider: 07/27/25 12:11 Source: patient Mode of arrival: ambulatory Limitations: no limitations History of Present Illness HPI narrative: 24-year-old male patient presents to [facility] with complaints of left wrist pain for the past 4 days. Patient states he woke up about 4 days ago with slight hand pain went to work. 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 Patient denies taking anything for pain denies icing it and denies wrapping it for comfort. Denies any numbness or tingling to the fingertips. Related Data Allergies Allergy/AdvReac Type Severity Reaction Status Date / Time No Known Allergies Allergy Verified 07/27/25 11:58 Review of Systems Review of Systems: CONSTITUTIONAL: Denies fever, chills, or sweats. EYES: Denies visual changes, redness, or discharge. ENT: Denies rhinorrhea, congestion, sore throat, or otalgia. CARDIOVASCULAR: Denies chest pain, palpitations, or edema. RESPIRATORY: Denies cough or dyspnea. GASTROINTESTINAL: Denies abdominal pain, nausea, vomiting, or diarrhea. GENITOURINARY: Denies dysuria or hematuria. SKIN: Denies rash or itching. MUSCULOSKELETAL: Denies back pain, joint pain, or myalgia. Positive left wrist pain x4 days NEUROLOGIC: Denies headache, numbness, or weakness. PSYCHIATRIC: Denies anxiety or depression. [facility] Past Medical History Medical History (Updated 07/27/25 @ 12:38 by JULIO Beach) No significant past medical history Comments At the time of my signature I agree with nursing past medical history, surgical, social, and family history. There is no relevant family history pertinent to the presenting complaint. Exam Narrative: GENERAL: Well-appearing, well-nourished, and in no acute distress. HEAD: Normocephalic, atraumatic. EYES: PERRLA and EOMI. ENT: Nares clear, no rhinorrhea or epistaxis. Mucous membranes moist. NECK: Supple. No lymphadenopathy CHEST: Clear to auscultation. No respiratory distress. HEART: Regular rate and rhythm. No murmur heard. Normal peripheral pulses. ABDOMEN: Soft, nontender, nondistended, normal active bowel sounds. EXTREMITIES: The L wrist is without obvious asymmetry or deformity when compared to the R wrist. No surface trauma, open wounds, swelling, or obvious deformity. No overlying erythema or warmth. No bony crepitus or focal area of TTP. No scaphoid fullness or tenderness to direct palpation or axial load. Normal flex/extension, complains of pain with ulnar/radial deviation. Motor/sensory function of ulnar, radial, median nerves intact. Ulnar and radial pulses intact. Negaitve Phalen's/Tinel's sign. Negative Natacha test. SKIN: Warm, dry, no rash. NEURO: No focal deficits. Alert and oriented x3. Course Course Level of Care: Express Care Visit Vital Signs Vital signs: Vital Signs Temperature 36.7 C 07/27/25 11:57 Pulse Rate 62 07/27/25 11:57 Respiratory Rate 18 07/27/25 11:57 Blood Pressure 106/64 07/27/25 11:57 Pulse Oximetry 100 07/27/25 11:57 Oxygen Delivery Room Air 07/27/25 11:57 Temperature 36.7 C 07/27/25 11:57 Pulse Rate 62 07/27/25 11:57 Respiratory Rate 18 07/27/25 11:57 Blood Pressure 106/64 07/27/25 11:57 Pulse Oximetry 100 07/27/25 11:57 Oxygen Delivery Room Air 07/27/25 11:57 Vital signs reviewed. Medical Decision Making MDM Narrative Medical decision making narrative: Plan of care for patient is to x-ray the wrist to ensure there is no underlying fracture causing the pain. If this is negative most likely will treated as a sprain and wrapped with Tani wrap, advised Tylenol and ibuprofen for pain and ice. Differential Diagnosis Differential Diagnosis: Differential diagnosis: Fracture, ligament injury, scaphoid fracture, sprains, tendinitis, carpal tunnel syndrome, DeQuervain's tenosynovitis Vital Signs Vital Signs: Vital Signs Temperature 36.7 C 07/27/25 11:57 Pulse Rate 62 07/27/25 11:57 Respiratory Rate 18 07/27/25 11:57 Blood Pressure 106/64 07/27/25 11:57 Pulse Oximetry 100 07/27/25 11:57 Oxygen Delivery Room Air 07/27/25 11:57 Temperature 36.7 C 07/27/25 11:57 Pulse Rate 62 07/27/25 11:57 Respiratory Rate 18 07/27/25 11:57 Blood Pressure 106/64 07/27/25 11:57 Pulse Oximetry 100 07/27/25 11:57 Oxygen Delivery Room Air 07/27/25 11:57 Imaging Data Radiologist's impression: [facility] [address] [place] [address] XRay Report Signed Patient: Juan Pablo Mukherjee : 2000 MR#: [id number] Age: 24 Acct:[id number] Loc: [facility] ADM Date: 07/27/25Attending Dr: Ordering Physician: Catherine Stauffer APRN Date of Service: 07/27/25 Procedure(s): XR wrist LT min 3V Accession Number(s): [id number] cc: UNKNOWN,DOCTOR; Catherine Stauffer [employer]~ X-rays left wrist Indication: Lifting boxes and felt pop Comparison: None Technique: 4 views left wrist Findings/Impression: 1. No fracture or dislocation left wrist. Reviewed, dictated and finalized at location R. Please be advised this is a medical document. It is intended for [id number] communication. It is written in medical language and may contain unfamiliar abbreviations or verbiage. Medical documents are intended to carry relevant information, facts as evident, and the clinical opinion of the practitioner at the time of the encounter. This report may have been done utilizing a voice recognition system. Attempts have been made to correct errors. However, there may be uncorrected grammatical, spelling, and recognition errors present. The file time of this note does not necessarily represent the time of service. Dictated By: Michael Olvera MD 07/27/25 1231 Signed By: <Electronically signed by Michael Olvera MD in OV> Critical Care Time Critical Care Time Critical Care Time: No Discharge Plan Discharge Clinical Impression: Left wrist sprain Patient Disposition: Home Condition: Stable Instructions: Antibiotic Form, Wrist Sprain (ED) Additional Instructions: Avoid weight bearing until the pain subsides. Ice to the area 20-30 minutes 4-6 times a day Elevate above heart Elastic wrap or orthopedic splint as directed for comfort for the next 5-7 days Crutches as directed if needed Tylenol for lesser pain Ibuprofen regularly for the next 2-3 days for the inflammation Follow up with your primary care provider if the condition is not improving within 1 week or sooner if the Condition worsens with numbness, tingling, decrease sensation with weakness to seek ER. Patient Language: Belizean Follow-up/Referrals: UNKNOWN,DOCTOR [Primary Care Provider] Time of Disposition: 12:38
== END 2025-07-27 12:43 | disposition home or self-care (01) ==
PROVIDERS: Emergency Provider Nurse Practitioner Family
DX: S63.502A Unspecified sprain of left wrist, initial encounter (principal); X50.0XXA Overexertion from strenuous movement or load, initial encounter; Y99.0 Civilian activity done for income or pay
CPT/HCPCS: 73110; 99213; G0463